=== PATIENT | male | born 1995 | race Two or more races ===

== ENCOUNTER 2016-09-12 07:10 | Emergency (ER) | payer SELFPAY ==
[~2016-09-12] VITALS: Ht 172.7 cm; Wt 59.0 kg
[2016-09-12] MEDS ORDERED: TdaP Vaccine 0.5ml Syr IM ONE (07:30)
[2016-09-12] MEDS ORDERED: Haloperidol 5mg/ml Inj IM ONE (07:30)
[2016-09-12] MEDS ORDERED: Benztropine 1mg tab ORAL ONE (07:30)
[2016-09-12 07:40] VITALS: BP 122/78
--- NOTE | 2016-09-12 08:03 | Emergency Room Report ---
History of Present Illness General Chief Complaint: Behavioral Complaint Source: Patient Present Illness HPI The patient is a 20-year-old male who presented after increased hallucinations and self injury. The patient had previous episodes of psychiatric hospitalizations. Patient had reportedly been hearing voices telling him to injure himself. Patient stated that he had cut his right arm. Patient was noted to have also cut his right leg. This was done several weeks ago. Patient denies any drug use. He denies any fever. Allergies: Coded Allergies: No Known Allergies (Unverified , 09/12/16) Patient History Past Medical History: see triage record Reviewed Nursing Documentation: PMH: Agreed, PSxH: Agreed Nursing Documentation-PMH Past Medical History: No History, Except For History Of Psychiatric Problem: Yes - schizoaffective disorder Review of Systems All Other Systems: negative except mentioned in HPI Physical Exam Vital Signs Date Time Temp Pulse Resp B/P Pulse Ox O2 Delivery O2 Flow Rate FiO2 09/12/16 07:20 97.9 85 18 122/78 100 Room Air Sp02 EP Interpretation: reviewed, normal General Appearance: normal inspection, well appearing, no apparent distress, alert, GCS 15 Head: atraumatic ENT: normal ENT inspection, hearing grossly normal, normal voice Neck: normal inspection, full range of motion, supple, no bony tend Respiratory: normal inspection, lungs clear, normal breath sounds, no respiratory distress, no retraction, no wheezing Cardiovascular #1: regular rate, rhythm, no edema Gastrointestinal: normal inspection, normal bowel sounds, non tender, soft, no guarding, no hernia Genitourinary: no CVA tenderness Musculoskeletal: back normal, normal range of motion Neurologic: normal inspection, alert, responsive, speech normal Psychiatric: normal inspection, judgement/insight normal, mood/affect normal Skin: abrasions - right upper arm superficial laceration, right thigh 4 cm old laceration granulating without erythema, multiple superficial excoriations, blood smear on face Medical Decision Making Diagnostic Impression: Primary Impression: Psychosis Additional Impressions: Self-inflicted injury Abrasion ER Course Patient presented for hearing voices. Differential diagnoses include substance abuse, psychosis, bipolar disorder, depression, malingering Because of complexity of patient's case laboratory testing and imaging studies were ordered. The patient was noted to have multiple old abrasions and a laceration which was partially healed. This did not appear to be infected. Patient also had a new abrasion to his right upper arm. Patient was medically cleared for psychiatric referral. He was given IM Haldol and Cogentin.Laboratory testing was unremarkable. Labs Test 09/12/16 07:45 09/12/16 07:55 White Blood Count 10.1 K/UL (4.8-10.8) Red Blood Count 5.55 M/UL (4.70-6.10) Hemoglobin 17.0 G/DL (14.2-18.0) Hematocrit 51.1 % (42.0-52.0) Mean Corpuscular Volume 92 FL (80-99) Mean Corpuscular Hemoglobin 30.7 PG (27.0-31.0) Mean Corpuscular Hemoglobin Concent 33.4 G/DL (32.0-36.0) Red Cell Distribution Width 11.8 % (11.6-14.8) Platelet Count 250 K/UL (150-450) Mean Platelet Volume 8.0 FL (6.5-10.1) Neutrophils (%) (Auto) 75.1 % (45.0-75.0) Lymphocytes (%) (Auto) 17.1 % (20.0-45.0) Monocytes (%) (Auto) 6.7 % (1.0-10.0) Eosinophils (%) (Auto) 0.5 % (0.0-3.0) Basophils (%) (Auto) 0.7 % (0.0-2.0) Sodium Level 138 mEQ/L (135-145) Potassium Level 3.8 mEQ/L (3.4-4.9) Chloride Level 96 mEQ/L (98-107) Carbon Dioxide Level 28 mEQ/L (20-30) Anion Gap 14 (5-15) Blood Urea Nitrogen 6 mg/dL (7-23) Creatinine 0.9 mg/dL (0.7-1.2) Estimat Glomerular Filtration Rate > 60 mL/min (>60) Glucose Level 104 mg/dL (74-106) Calcium Level 9.7 mg/dL (8.6-10.2) Total Bilirubin 1.9 mg/dL (0.0-1.2) Direct Bilirubin 0.2 mg/dL (0.1-0.3) Aspartate Amino Transf (AST/SGOT) 20 U/L (5-40) Alanine Aminotransferase (ALT/SGPT) 15 U/L (3-41) Alkaline Phosphatase 111 U/L (40-129) Total Protein 7.4 g/dL (6.6-8.7) Albumin 4.5 g/dL (3.5-5.2) Globulin 2.9 g/dL Albumin/Globulin Ratio 1.5 (1.0-2.7) Salicylates Level < 1 mg/dL (10-30) Acetaminophen Level < 10 ug/mL (10-30) Serum Alcohol < 10 mg/dL Urine Opiates Screen Negative (NEGATIVE) Urine Barbiturates Screen Negative (NEGATIVE) Phencyclidine (PCP) Screen Negative (NEGATIVE) Urine Amphetamines Screen Negative (NEGATIVE) Urine Benzodiazepines Screen Negative (NEGATIVE) Urine Cocaine Screen Negative (NEGATIVE) Urine Marijuana (THC) Screen Negative (NEGATIVE) Last Vital Signs Date Time Temp Pulse Resp B/P Pulse Ox O2 Delivery O2 Flow Rate FiO2 09/12/16 07:20 97.9 85 18 122/78 100 Room Air Status: unchanged Disposition: XFER TO PSYCH HOSP/UNIT Condition: Serious Michi Richmond Sep 12, 2016 08:03
[2016-09-12 08:23] LABS: BASOPHILS % (AUTO) 0.7 % (0.0-2.0); EOSINOPHILS % (AUTO) 0.5 % (0.0-3.0); LYMPHOCYTES % (AUTO) 17.1 % (20.0-45.0); MEAN CORPUSCULAR HEMOGLOBIN 30.7 PG (27.0-31.0); MEAN CORPUSCULAR HGB CONC 33.4 G/DL (32.0-36.0); MEAN CORPUSCULAR VOLUME 92 FL (80-99); MONOCYTES % (AUTO) 6.7 % (1.0-10.0); NEUTROPHILS % (AUTO) 75.1 % (45.0-75.0); PLATELET COUNT 250 K/UL (150-450); RED BLOOD COUNT 5.55 M/UL (4.70-6.10); RED CELL DISTRIBUTION WIDTH 11.8 % (11.6-14.8); WHITE BLOOD COUNT 10.1 K/UL (4.8-10.8)
[2016-09-12 08:37] LABS: ACETAMINOPHEN < 10 ug/mL (10-30); ALANINE AMINOTRANSFERASE 15 U/L (3-41); ALBUMIN/GLOBULIN RATIO 1.5 (1.0-2.7); ALCOHOL < 10 mg/dL; ANION GAP 14 (5-15); ASPARTATE AMINO TRANSFERASE 20 U/L (5-40); CALCIUM 9.7 mg/dL (8.6-10.2); CARBON DIOXIDE 28 mEQ/L (20-30); CHLORIDE 96 mEQ/L (98-107); CREATININE 0.9 mg/dL (0.7-1.2); GLOMERULAR FILTRATION RATE > 60 mL/min (>60); HEMOLYSIS 11; POTASSIUM 3.8 mEQ/L (3.4-4.9); SODIUM 138 mEQ/L (135-145); TOTAL PROTEIN 7.4 g/dL (6.6-8.7)
[2016-09-12 08:50] LABS: BILIRUBIN,DIRECT 0.2 mg/dL (0.1-0.3)
[2016-09-12 12:15] VITALS: BP 98/72
[2016-09-12 18:25] VITALS: BP 130/64
[2016-09-12 22:20] VITALS: BP 101/63
== END 2016-09-12 22:20 ==
LOC: EMR 07:30
DX: F29 Unspecified psychosis not due to a substance or known physiological condition (principal); S00.81XA Abrasion of other part of head, initial encounter; S41.111A Laceration without foreign body of right upper arm, initial encounter; S71.111A Laceration without foreign body, right thigh, initial encounter; X78.9XXA Intentional self-harm by unspecified sharp object, initial encounter; Y92.9 Unspecified place or not applicable; F25.9 Schizoaffective disorder, unspecified; Z23 Encounter for immunization
CPT/HCPCS: 36415; 80053; 80300; 82248; 85025; 90471; 90715; 96372; 99284; G0480; J1630; 80329